=== PATIENT | female | born 1965 | race African-American/Black ===

== ENCOUNTER 2016-10-21 14:12 | Emergency (ER) | payer OTHER ==
[~2016-10-21 14:12] MED LIST: HYDR-963 PO; WARF5TAB7 PO
[2016-10-21] MEDS ORDERED: IV NORMAL SALINE 1000ML BAG 1,000 ML IV SCH (15:54)
[2016-10-21] MEDS ORDERED: FENTANYL PF 100 MCG/2 ML VIAL. IV PRN (16:00)
[2016-10-21] MEDS ORDERED: FAMOTIDINE 20 MG/2 ML VIAL IVP ONE (16:00)
[2016-10-21] MEDS ORDERED: ONDANSETRON PF 4 MG/2 ML VIAL. IV ONE (16:00)
[2016-10-21] MEDS ORDERED: LIDO:MAALOX:DONNATAL 1:1:1 15 ML SINGLE DOSE SWSW ONE (16:00)
--- NOTE | 2016-10-21 16:00 | PHYS DOC ---
Past Medical History Past Medical History: Other Additional Past Medical Histor: chronic pain, blood clot Past Surgical History: Appendectomy, Cholecystectomy, Other Additional Past Surgical Histo: several neck surgery Alcohol Use: None Drug Use: None Adult General Chief Complaint Chief Complaint: ABDOMINAL PAIN HPI HPI Patient is a 51 year old female who presents with complaint of right-sided abdominal pain. Patient states that she has been having pain for the past 2 weeks. Patient states that the pain is sharp, rated 8 out of 10, and states that along the right side of her abdomen and travels towards her epigastric area. Patient denies any associated vomiting, fever, or diarrhea. Patient states that she has had history of cholecystectomy 4 years ago. Patient states that her symptoms feel similar. Patient states that she is unable to lay on the right side due to pain along her abdomen. Patient has not taken any medications to help with her symptoms at this time. Review of Systems Review of Systems Constitutional: Denies fever or chills [] Eyes: Denies change in visual acuity, redness, or eye pain [] HENT: Denies nasal congestion or sore throat [] Respiratory: Denies cough or shortness of breath [] Cardiovascular: Denies chest pain or edema [] GI: Abdominal pain, denies nausea, vomiting, or diarrhea [] : Denies dysuria or hematuria [] Musculoskeletal: Denies back pain or joint pain [] Integument: Denies rash or skin lesions [] Neurologic: Denies headache, focal weakness or sensory changes [] Current Medications Current Medications Current Medications Medications (Trade) Dose Ordered Sig/Gloria Start Time Stop Time Status Last Admin Dose Admin Famotidine (Pepcid) 20 mg 1X ONCE 10/21/16 16:00 10/21/16 16:01 DC 10/21/16 16:19 20 MG Fentanyl Citrate 50 mcg 50 mcg PRN Q15MIN PRN 10/21/16 16:00 10/21/16 20:27 DC 10/21/16 16:19 50 MCG Iohexol (Omnipaque 300 Mg/ml) 75 ml 1X ONCE 10/21/16 18:00 10/21/16 18:01 DC 10/21/16 18:10 75 ML Multi-Ingredient Mouthwash/Gargle (Gi Cocktail Single Dose) 15 ml 1X ONCE 10/21/16 16:00 10/21/16 16:01 DC 10/21/16 16:19 15 ML Ondansetron HCl (Zofran) 4 mg 1X ONCE 10/21/16 16:00 10/21/16 16:01 DC 10/21/16 16:18 4 MG Sodium Chloride (Iv Sodium Chloride 0.9% 1000ml Bag) 1,000 ml @ 1,000 mls/hr Q1H 10/21/16 15:54 10/21/16 16:53 DC 10/21/16 15:54 1,000 MLS/HR Allergies Allergies Allergies Coded Allergies Type Severity Reaction Last Updated Verified No Known Drug Allergies 09/13/14 No Physical Exam Physical Exam Constitutional: Alert, afebrile, appears in mild to moderate discomfort. [] HENT: Normocephalic, atraumatic, bilateral external ears normal, oropharynx moist, no oral exudates, nose normal. [] Eyes: PERRLA, EOMI, conjunctiva normal, no discharge. [] Neck: Normal range of motion, no tenderness, supple, no stridor. [] Cardiovascular:Heart rate regular rhythm, no murmur [] Lungs & Thorax: Bilateral breath sounds clear to auscultation [] Abdomen: Bowel sounds normal, soft, epigastric and right upper quadrant tenderness to palpation, mild guarding, no rebound tenderness, no masses, no pulsatile masses. [] Skin: Warm, dry, no erythema, no rash. [] Back: No tenderness, no CVA tenderness. [] Extremities: No tenderness, no cyanosis, no clubbing, ROM intact, no edema. [] Neurologic: Alert and oriented X 3, normal motor function, normal sensory function, no focal deficits noted. [] Current Patient Data Vital Signs Vital Signs Date Time Temp Pulse Resp B/P Pulse Ox O2 Delivery O2 Flow Rate FiO2 10/21/16 20:15 80 159/75 95 Room Air 10/21/16 16:19 12 10/21/16 15:03 97.9 97.9 Lab Values Laboratory Tests Test 10/21/16 15:17 10/21/16 16:05 White Blood Count 6.3x10^3/uL (4.0-11.0) Red Blood Count 4.68x10^6/uL (3.50-5.40) Hemoglobin 10.8g/dL (12.0-15.5) L Hematocrit 34.7% (36.0-47.0) L Mean Corpuscular Volume 74fL (79-100) L Mean Corpuscular Hemoglobin 23pg (25-35) L Mean Corpuscular Hemoglobin Concent 31g/dL (31-37) Red Cell Distribution Width 15.0% (11.5-14.5) H Platelet Count 200x10^3/uL (140-400) Neutrophils (%) (Auto) 46% (31-73) Lymphocytes (%) (Auto) 39% (24-48) Monocytes (%) (Auto) 8% (0-9) Eosinophils (%) (Auto) 6% (0-3) H Basophils (%) (Auto) 2% (0-3) Neutrophils # (Auto) 2.9x10^3uL (1.8-7.7) Lymphocytes # (Auto) 2.4x10^3/uL (1.0-4.8) Monocytes # (Auto) 0.5x10^3/uL (0.0-1.1) Eosinophils # (Auto) 0.4x10^3/uL (0.0-0.7) Basophils # (Auto) 0.1x10^3/uL (0.0-0.2) Sodium Level 141mmol/L (136-145) Potassium Level 4.2mmol/L (3.5-5.1) Chloride Level 103mmol/L (98-107) Carbon Dioxide Level 30mmol/L (21-32) Anion Gap 8 (6-14) Blood Urea Nitrogen 15mg/dL (7-20) Creatinine 0.7mg/dL (0.6-1.0) Estimated GFR (Cockcroft-Gault) 107.2 BUN/Creatinine Ratio 21 (6-20) H Glucose Level 185mg/dL (70-99) H Calcium Level 9.2mg/dL (8.5-10.1) Total Bilirubin 0.3mg/dL (0.2-1.0) Aspartate Amino Transferase (AST) 24U/L (15-37) Alanine Aminotransferase (ALT) 24U/L (14-59) Alkaline Phosphatase 102U/L (46-116) Creatine Kinase 89U/L (26-192) Creatine Kinase MB (Mass) 0.6ng/mL (0.0-3.6) Creatine Kinase MB Relative Index 0.7% (0-4) Troponin I Quantitative < 0.017ng/mL (0.000-0.055) Total Protein 7.7g/dL (6.4-8.2) Albumin 3.5g/dL (3.4-5.0) Albumin/Globulin Ratio 0.8 (1.0-1.7) L Lipase 136U/L (73-393) Urine Color Yellow Urine Clarity Clear Urine pH 5.5 Urine Specific [place] 1.010 Urine Protein Negativemg/dL (NEG-TRACE) Urine Glucose (UA) Negativemg/dL (NEG) Urine Ketones (Stick) Negativemg/dL (NEG) Urine Blood Negative (NEG) Urine Nitrite Negative (NEG) Urine Bilirubin Negative (NEG) Urine Urobilinogen Dipstick 0.2mg/dL (0.2 mg/dL) Urine Leukocyte Esterase Negative (NEG) Urine RBC 0/HPF (0-2) Urine WBC Occ/HPF (0-4) Urine Squamous Epithelial Cells Occ/LPF Urine Bacteria 0/HPF (0-FEW) Laboratory Tests 10/21/16 15:17 Laboratory Tests 10/21/16 15:17 EKG EKG Interpreted by me: Heart rate 77, sinus rhythm, normal intervals, normal axis, T -wave inversions in V4 and V5, no acute ST elevations or depressions [] Radiology/Procedures Radiology/Procedures [facility] [address] [place] [address] IMAGING REPORT Signed PATIENT: MAGGIE ANGEL ACCOUNT: [id number] : 1965 LOCATION: ER AGE: 51 SEX: F EXAM STATUS: REG ER ORD. PHYSICIAN: MIGUELITO MAYER MD REASON: epigastric and right upper quadrant pain for 2 weeks PROCEDURE: ABD PELV W/ IV CONTRAST ONLY PROCEDURE CT abdomen pelvis with intravenous contrast. HISTORY Severe epigastric and right upper quadrant pain for 2 weeks. TECHNIQUE After administration of intravenous contrast only, 75 mL Omnipaque 300, CT of the abdomen and pelvis was performed. Exposure: One or more of the following individualized dose reduction techniques were utilized for this examination: 1. Automated exposure control. 2. Adjustment of the mA and/or kV according to patient size. 3. Use of iterative reconstruction technique. COMPARISON None. FINDINGS Liver, spleen, pancreas, and bilateral adrenal glands are unremarkable. Gallbladder is absent. Bilateral kidneys enhance symmetrically. Urinary bladder is not well distended with urine. Given level of distention, there may be mild urinary bladder wall thickening. Uterus and adnexa have unremarkable CT appearance. No bowel obstruction or inflammation is identified. Appendix move without evidence of inflammation. No free air or free fluid is seen the abdomen or pelvis. IMPRESSION 1. No evidence of bowel pathology. 2. Question mild wall thickening urinary bladder. Correlate for possibility of cystitis. Electronically signed by: Alex Zavala MD (Oct 21, 2016 18:28:06) DICTATED and SIGNED BY: ALEX ZAVALA MD DATE: 10/21/161827 CC: MIGUELITO MAYER MD; UNKNOWN PCP NAME ~ [] Course & Med Decision Making Course & Med Decision Making Pertinent Labs and Imaging studies reviewed. (See chart for details) Patient was given IV fluids, Zofran, Pepcid, and fentanyl. On reevaluation, patient states her symptoms have improved. Patient's CT scan does not show an acute surgical cause for patient's symptoms. Differential includes abdominal wall strain versus possible peptic ulcer disease versus gastritis. The patient will be started on Flexeril for treatment of possible abdominal wall strain. Patient was also started on [place] for treatment of breakthrough pain. Advised follow-up with primary doctor in 3 days with recommended return to the emergency department for any worsening symptoms. Patient voiced understanding and in agreement with treatment plan. Dragon Disclaimer Dragon Disclaimer This electronic medical record was generated, in whole or in part, using a voice recognition dictation system. Departure Departure Impression: Primary Impression: Abdominal pain Disposition: 01 HOME, SELF-CARE Condition: IMPROVED Referrals: UNKNOWN PCP NAME (PCP) Patient Instructions: Abdominal Pain (Nonspecific) Additional Instructions: Follow-up with primary doctor in 3 days. Return to the emergency department for any worsening symptoms. Scripts Hydrocodone/Apap 5-325 ([place] 5-325 Tablet)1 Each Tablet1 Tab PO Q6HRS PRN PAIN #20 TAB Prov:MIGUELITO MAYER MD 10/21/16 Cyclobenzaprine Hcl 10 Mg Tablet1 Tab PO QHS #15 TAB Prov:MIGUELITO MAYER MD 2/16/17 Problem Qualifiers Primary Impression: Abdominal pain Abdominal location: right upper quadrant Qualified Code: R10.11 - Right upper quadrant pain MIGUELITO MAYER MD Oct 21, 2016 16:00
--- NOTE | 2016-10-21 16:27 | EKG ---
[facility] [address] [place] [address] Test Date: 2016-10-21 Test Time: 16:15:09 Pat Name: MAGGIE ANGEL Department: Room: Gender: F Benefits Consulting Analyst: : 1965 Requested By: MIGUELITO MAYER Order Number: [id number] Reading MD: Measurements Intervals False Pass Rate: 77 P: 29 LA: 148 QRS: 19 QRSD: 84 T: 68 QT: 370 QTc: 420 Interpretive Statements SINUS RHYTHM LEFT ATRIAL ABNORMALITY T ABNORMALITY IN ANTEROLATERAL LEADS ABNORMAL ECG RI6.01 No previous ECG available for comparison
[2016-10-21 16:36] LABS: BASO # 0.1 x10^3/uL (0.0-0.2); BASO % 2 % (0-3); EOS % 6 % (0-3); HEMATOCRIT 34.7 % (36.0-47.0); HEMOGLOBIN 10.8 g/dL (12.0-15.5); LYMPH # 2.4 x10^3/uL (1.0-4.8); LYMPH % 39 % (24-48); MEAN CORPUSCULAR HEMOGLOBIN 23 pg (25-35); MEAN CORPUSCULAR HGB CONC 31 g/dL (31-37); MEAN CORPUSCULAR VOLUME 74 fL (79-100); MONO % 8 % (0-9); NEUT % 46 % (31-73); PLATELET COUNT 200 x10^3/uL (140-400); RED BLOOD COUNT 4.68 x10^6/uL (3.50-5.40); WHITE BLOOD COUNT 6.3 x10^3/uL (4.0-11.0)
[2016-10-21 16:37] LABS: BILIRUBIN,URINE NEGATIVE (NEG); GLUCOSE,URINE NEGATIVE (NEG); NITRITE,URINE NEGATIVE (NEG); PH,URINE 5.5; PROTEIN,URINE NEGATIVE (NEG-TRACE); UROBILINOGEN,URINE 0.2 mg/dL (0.2 mg/dL)
[2016-10-21 16:59] LABS: CALCIUM 9.2 mg/dL (8.5-10.1); CREATININE 0.7 mg/dL (0.6-1.0); GFR 107.2; POTASSIUM 4.2 mmol/L (3.5-5.1)
[2016-10-21 17:04] LABS: ALBUMIN 3.5 g/dL (3.4-5.0); ALBUMIN/GLOBULIN RATIO 0.8 (1.0-1.7); TOTAL BILIRUBIN 0.3 mg/dL (0.2-1.0); TOTAL PROTEIN 7.7 g/dL (6.4-8.2)
[2016-10-21 17:08] LABS: BACTERIA,URINE 0 /HPF (0-FEW); RBC,URINE 0 /HPF (0-2); SQUAMOUS EPITHELIAL CELL,UR OCC /LPF; WBC,URINE OCC /HPF (0-4)
[2016-10-21 17:20] LABS: CKMB INDEX 0.7 % (0-4); CKMB MASS 0.6 ng/mL (0.0-3.6)
[2016-10-21] MEDS ORDERED: IOHEXOL 300 MG/ML 75 ML VIAL IV ONE (18:00)
--- NOTE | 2016-10-21 18:29 | RAD ---
PROCEDURE CT abdomen pelvis with intravenous contrast. HISTORY Severe epigastric and right upper quadrant pain for 2 weeks. TECHNIQUE After administration of intravenous contrast only, 75 mL Omnipaque 300, CT of the abdomen and pelvis was performed. Exposure: One or more of the following individualized dose reduction techniques were utilized for this examination: 1. Automated exposure control. 2. Adjustment of the mA and/or kV according to patient size. 3. Use of iterative reconstruction technique. COMPARISON None. FINDINGS Liver, spleen, pancreas, and bilateral adrenal glands are unremarkable. Gallbladder is absent. Bilateral kidneys enhance symmetrically. Urinary bladder is not well distended with urine. Given level of distention, there may be mild urinary bladder wall thickening. Uterus and adnexa have unremarkable CT appearance. No bowel obstruction or inflammation is identified. Appendix move without evidence of inflammation. No free air or free fluid is seen the abdomen or pelvis. IMPRESSION 1. No evidence of bowel pathology. 2. Question mild wall thickening urinary bladder. Correlate for possibility of cystitis. Electronically signed by: Alex Zavala MD (Oct 21, 2016 18:28:06)
[2016-10-21] MEDS ORDERED: HYDR-971 PO (19:36)
[2016-10-21] MEDS ORDERED: CYCL10TA2 PO (19:36)
[2016-10-21 20:15] VITALS: BP 159/75
== END 2016-10-21 20:15 | disposition home or self-care (01) ==
LOC: ER 14:12
DX: R10.11 Right upper quadrant pain (principal); R10.13 Epigastric pain; G89.29 Other chronic pain; Z90.49 Acquired absence of other specified parts of digestive tract
CPT/HCPCS: 36415; 74177; 80053; 81001; 82553; 83690; 84484; 85027; 93005; 96361; 96374; 96375; 99285; J2405; J3010; J7030; Q9967; S0028

== ENCOUNTER 2018-04-28 17:44 | Emergency (ER) | payer OTHER ==
[~2018-04-28] VITALS: Ht 172.7 cm; Wt 70.3 kg
[~2018-04-28 17:44] MED LIST changes: +CYCL10TA2 PO; +HYDR-971 PO; +WARF-31 PO; -WARF5TAB7 PO
[2018-04-28 18:18] VITALS: BP 155/74
[2018-04-28] MEDS ORDERED: IBUPROFEN 600 MG TABLET. PO ONE (18:45)
--- NOTE | 2018-04-28 19:10 | PHYS DOC ---
Past Medical History Past Medical History: Diabetes-Type II, Hypertension, Other Additional Past Medical Histor: chronic pain, blood clot Past Surgical History: Appendectomy, Cholecystectomy, Other Additional Past Surgical Histo: several neck surgery Alcohol Use: None Drug Use: None Adult General Chief Complaint Chief Complaint: UPPER EXTREMITY PAIN HPI HPI 52 y/o female presents to ER with her son Gaetano who is translating for her. He reports pt has had increased lt arm pain in forearm/upper arm along with swelling for past couple of days denying any injury/falls. He reports pt has chronic pain from previous neck surgery but reports this pain to be more intense and different than in the past. Pt took hydrocodone around 12 p.m. with minimal relief in pain. In pt's records she has hx of blood clot where she had been on Coumadin but pt is unsure where the clot was and her son reports she has been off her Coumadin for couple of yrs. Pt is not smoker and has not recently traveled. She is not on any hormonal therapy. Review of Systems Review of Systems Constitutional: Denies fever or chills [] Eyes: Denies change in visual acuity, redness, or eye pain [] HENT: Denies nasal congestion or sore throat [] Respiratory: Denies cough or shortness of breath [] Cardiovascular: No additional information not addressed in HPI [] GI: Denies abdominal pain, nausea, vomiting, bloody stools or diarrhea [] : Denies dysuria or hematuria [] Musculoskeletal: Denies back pain or joint pain [] Integument: Denies rash or skin lesions [] Neurologic: Denies headache, focal weakness or sensory changes [] Endocrine: Denies polyuria or polydipsia [] All other systems were reviewed and found to be within normal limits, except as documented in this note. Current Medications Current Medications Current Medications Medications (Trade) Dose Ordered Sig/Gloria Start Time Stop Time Status Last Admin Dose Admin Ibuprofen (Motrin) 600 mg 1X ONCE 04/28/18 18:45 04/28/18 18:46 DC 04/28/18 20:43 600 MG Allergies Allergies Allergies Coded Allergies Type Severity Reaction Last Updated Verified No Known Drug Allergies 09/13/14 No Physical Exam Physical Exam Constitutional: Well developed, well nourished, no acute distress, non-toxic appearance. [] HENT: Normocephalic, atraumatic, bilateral external ears normal, oropharynx moist, no oral exudates, nose normal. [] Eyes: PERRLA, EOMI, conjunctiva normal, no discharge. [] Neck: Normal range of motion, no tenderness, supple, no stridor. [] Cardiovascular:Heart rate regular rhythm, no murmur [] Lungs & Thorax: Bilateral breath sounds clear to auscultation [] Abdomen: Bowel sounds normal, soft, no tenderness, no masses, no pulsatile masses. [] Skin: Warm, dry, no erythema, no rash. [] Back: No tenderness, no CVA tenderness. [] Extremities: No tenderness, no cyanosis, no clubbing, ROM intact, no edema. [] Neurologic: Alert and oriented X 3, normal motor function, normal sensory function, no focal deficits noted. [] Psychologic: Affect normal, judgement normal, mood normal. [] Current Patient Data Vital Signs Vital Signs Date Time Temp Pulse Resp B/P (MAP) Pulse Ox O2 Delivery O2 Flow Rate FiO2 04/28/18 18:18 98.0 67 18 155/74 (101) 96 Room Air 98.0 Lab Values Laboratory Tests Test 04/28/18 18:40 Glucose (Fingerstick) 99 mg/dL (70-99) EKG EKG [] Radiology/Procedures Radiology/Procedures [] Course & Med Decision Making Course & Med Decision Making Pertinent Imaging studies reviewed. (See chart for details) 2119: Discussed imaging results with pt and her son- again with son translating. No acute findings reported for DVT on US or fxs on xrays- discussed arthritis. Pt reports with ibuprofen her pain has improved, Pt remains neuro/vascular intact in lt upper extremity. Will place her in sling for extremity support and advised on need for f/u with orthopedic doctor for further care/eval. Gerhard Disclaimer Dragon Disclaimer This electronic medical record was generated, in whole or in part, using a voice recognition dictation system. Departure Departure Impression: Primary Impression: Arm pain, left Disposition: 01 HOME, SELF-CARE Condition: STABLE Referrals: UNKNOWN PCP NAME (PCP) MALIK NICOLAS MD orthopedic doctor to follow-up with Patient Instructions: Arm Sling Use, [id number], Musculoskeletal Pain Additional Instructions: Wear sling when walking for support of your left arm. Ibuprofen as needed for pain control as directed on container. Take your prescribed hydrocodone as previously prescribed. Follow-up with orthopedic doctor for further care and evaluation. MAREK EUGENE APRN Apr 28, 2018 19:10
--- NOTE | 2018-04-28 19:20 | RAD ---
Indication: Left upper extremity pain and swelling for one month. No known injury. TECHNIQUE: AP and lateral views of the left forearm. COMPARISON: None FINDINGS: No acute fracture or dislocation. Abdomen within normal limits. Mild radiocarpal joint arthritis. Soft tissue within normal limits. IMPRESSION: No acute findings. Electronically signed by: John Reddy DO (04/28/2018 7:17 PM) [facility]
--- NOTE | 2018-04-28 20:11 | RAD ---
Indication: Left approximately pain and swelling for one month TECHNIQUE: 2 views of the left humerus COMPARISON: None FINDINGS: No acute fracture or dislocation. Mild glenohumeral joint arthritis. No soft tissue abnormality. No periosteal reaction or cortical erosion. IMPRESSION: No acute findings. Electronically signed by: John Reddy DO (04/28/2018 8:08 PM) [facility]
--- NOTE | 2018-04-28 20:52 | RAD ---
Ultrasound venous Doppler INDICATION:Left upper arm/forearm pain and swelling TECHNIQUE: Grayscale, color Doppler and spectral waveform ultrasound images of the left upper extremities deep veins obtained. COMPARISON: None FINDINGS: The internal jugular vein, subclavian vein, axillary vein, brachial vein, cephalic vein, basilic vein, radial vein and ulnar vein are compressible and demonstrates evidence of blood flow. IMPRESSION: No sonographic evidence of acute DVT of the left upper extremity deep veins. Electronically signed by: John Reddy DO (04/28/2018 8:49 PM) [facility]
== END 2018-04-28 21:40 | disposition home or self-care (01) ==
LOC: ER 17:44
DX: M79.632 Pain in left forearm (principal); G89.29 Other chronic pain; E11.9 Type 2 diabetes mellitus without complications; I10 Essential (primary) hypertension; Z79.01 Long term (current) use of anticoagulants
CPT/HCPCS: 73060; 73090; 82962; 93971; 99285

== ENCOUNTER 2019-07-03 17:11 | Emergency (ER) | payer OTHER ==
[~2019-07-03] VITALS: Ht 165.1 cm; Wt 88.6 kg
[~2019-07-03 17:11] MED LIST changes: +HYDR-3135 PO; +HYDR-3164 PO; -HYDR-963 PO; -HYDR-971 PO
[2019-07-03 17:28] VITALS: BP 168/81
--- NOTE | 2019-07-03 18:04 | PHYS DOC ---
Past Medical History Past Medical History: Diabetes-Type II, High Cholesterol, Hypertension, Other Additional Past Medical Histor: chronic pain, blood clot Past Surgical History: Appendectomy, Cholecystectomy, Other Additional Past Surgical Histo: several neck surgery Alcohol Use: None Drug Use: None Adult General Chief Complaint Chief Complaint: HIP PAIN HPI HPI Patient is a 53 year old female that presents with bilateral leg pain and neck pain has been ongoing for 3 days. The patient denies falling, and states that she's had this pain in the past and sees a pain management doctor for this pain. The patient states that she has a history of chronic pain. Narcotics by her pain management doctor and states that she ran out today. Rates her pain as 10 out of 10 in severity and sharp. Review of Systems Review of Systems Constitutional: Denies fever or chills [] Eyes: Denies change in visual acuity, redness, or eye pain [] HENT: Denies nasal congestion or sore throat [] Respiratory: Denies cough or shortness of breath [] Cardiovascular: No additional information not addressed in HPI [] GI: Denies abdominal pain, nausea, vomiting, bloody stools or diarrhea [] : Denies dysuria or hematuria [] Musculoskeletal: Reports back pain, and neck pain. Integument: Denies rash or skin lesions [] Neurologic: Denies headache, focal weakness or sensory changes [] Endocrine: Denies polyuria or polydipsia [] Complete systems were reviewed and found to be within normal limits, except as documented in this note. Allergies Allergies Allergies Coded Allergies Type Severity Reaction Last Updated Verified No Known Drug Allergies 09/13/14 No Physical Exam Physical Exam Constitutional: Well developed, well nourished, no acute distress, non-toxic appearance. [] HENT: Normocephalic, atraumatic, bilateral external ears normal, oropharynx moist, no oral exudates, nose normal. [] Eyes: PERRLA, EOMI, conjunctiva normal, no discharge. [] Neck: Normal range of motion, tenderness to neck to right side., supple, no stridor. [] Cardiovascular:Heart rate regular rhythm, no murmur [] Lungs & Thorax: Bilateral breath sounds clear to auscultation [] Abdomen: Bowel sounds normal, soft, no tenderness, no masses, no pulsatile masses. [] Skin: Warm, dry, no erythema, no rash. [] Back: Tenderness to back bilaterally. Extremities: No tenderness, no cyanosis, no clubbing, ROM intact, no edema. [] Neurologic: Alert and oriented X 3, normal motor function, normal sensory function, no focal deficits noted. [] Psychologic: Affect normal, judgement normal, mood normal. [] Current Patient Data Vital Signs Vital Signs Date Time Temp Pulse Resp B/P (MAP) Pulse Ox O2 Delivery O2 Flow Rate FiO2 07/03/19 17:28 97.9 80 24 168/81 (110) 94 Room Air 97.9 EKG EKG [] Radiology/Procedures Radiology/Procedures [] Course & Med Decision Making Course & Med Decision Making Pertinent Labs and Imaging studies reviewed. (See chart for details) [] Dragon Disclaimer Dragon Disclaimer This electronic medical record was generated, in whole or in part, using a voice recognition dictation system. Departure Departure Impression: Primary Impression: Chronic right shoulder pain Additional Impression: Sciatica Disposition: HOME, SELF-CARE Condition: STABLE Referrals: UNKNOWN PCP NAME (PCP) Patient Instructions: Chronic Back Pain Additional Instructions: Thank you for visiting [facility]. We appreciate you trusting us with your care. If any additional problems come up don't hesitate to return to visit us. Please follow up with your primary care provider so they can plan additional care if needed and know about the problem that you had. If symptoms worsen come back to the Emergency Department. Any concerning symptoms that start such as chest pain, shortness of air, weakness or numbness on one side of the body, running high fevers or any other concerning symptoms return to the ER. Please contact her pain management doctor regarding this chronic pain. Problem Qualifiers Additional Impression: Sciatica Laterality: bilateral Qualified Codes: M54.31 - Sciatica, right side; M54.32 - Sciatica, left side ALEXYS VELASQUEZ APRN Jul 03, 2019 18:04
== END 2019-07-03 18:28 | disposition home or self-care (01) ==
LOC: ER 17:11
DX: G89.29 Other chronic pain (principal); M25.511 Pain in right shoulder; M25.512 Pain in left shoulder; M54.31 Sciatica, right side; M54.32 Sciatica, left side; M54.89 Other dorsalgia; E11.9 Type 2 diabetes mellitus without complications; E78.00 Pure hypercholesterolemia, unspecified; I10 Essential (primary) hypertension; Z98.890 Other specified postprocedural states; Z90.89 Acquired absence of other organs; Z90.49 Acquired absence of other specified parts of digestive tract
CPT/HCPCS: 99284

== ENCOUNTER 2021-10-04 14:32 | Emergency (ER) | payer OTHER ==
[~2021-10-04] VITALS: Ht 172.7 cm; Wt 85.3 kg
[~2021-10-04 14:32] MED LIST changes: +CYCL10TA19 PO; -CYCL10TA2 PO
--- NOTE | 2021-10-04 16:49 | PHYS DOC ---
Past Medical History Past Medical History: Diabetes-Type II, High Cholesterol, Hypertension, Other Additional Past Medical Histor: chronic pain, blood clot Past Surgical History: Appendectomy, Cholecystectomy, Other Additional Past Surgical Histo: several neck surgery, R KNRR L WRIST R, KIDNEY STONE Smoking Status: Never Smoker Alcohol Use: None Drug Use: None General Adult EDM: Chief Complaint: BACK PAIN OR INJURY HPI: HPI: Patient is a 56 year old female who presents with right-sided back pain that began 2 weeks ago. Patient's family members at bedside and aids in providing history. Patient was walking outside the home 2 weeks ago, when she slipped on some ice. She fell onto her right hip/buttock. Patient has been able to ambulate since injury, however has persistent pain. She denies radiation of her pain, urinary or bowel incontinence, saddle anesthesia. Review of Systems: Review of Systems: Constitutional: Denies fever, chills or generalized weakness Eyes: Denies change in visual acuity, visual field deficits or discharge HENT: Denies ear pain, nasal congestion or sore throat Respiratory: Denies cough or shortness of breath Cardiovascular: Denies chest pain, palpitations or edema GI: Denies abdominal pain, nausea, vomiting, bloody stools or diarrhea : Denies dysuria or hematuria Musculoskeletal: See HPI Integument: Denies rash or other skin lesion Neurologic: Denies headache, focal weakness or sensory changes Heart Score: C/O Chest Pain: No Current Medications: Current Medications Medications (Trade) Dose Ordered Sig/Gloria Start Time Stop Time Status Last Admin Dose Admin Ketorolac Tromethamine (Toradol 30mg Vial) 30 mg 1X ONCE 10/04/21 16:30 10/04/21 16:31 DC Orphenadrine Citrate (Norflex) 60 mg 1X ONCE 10/04/21 16:30 10/04/21 16:31 DC Allergies: Allergies: Allergies Coded Allergies Type Severity Reaction Last Updated Verified No Known Drug Allergies 09/13/14 No Physical Exam: PE: Constitutional: Well developed, well nourished, no acute distress, non-toxic appearance. Eyes: EOMI, conjunctiva normal, no discharge. Neck: Normal range of motion, no stepoff, no tenderness, no stridor. Skin: Warm, dry, no erythema, no rash. Back: No stepoff, no midline tenderness, right sided paraspinal spasm and tenderness in lumbar region, no CVA tenderness. Extremities: No tenderness, no cyanosis, no clubbing, ROM intact including great toe dorsiflexion, no edema, distal pulses 2+ and symmetrical. Neurologic: Alert and oriented x4, no focal deficits noted. Current Patient Data: Vital Signs: Vital Signs Date Time Temp Pulse Resp B/P (MAP) Pulse Ox O2 Delivery O2 Flow Rate FiO2 10/04/21 15:05 97.9 85 18 168/81 (110) 99 Room Air 97.9 Radiology/Procedures: Radiology/Procedures: EXAM: Pelvis and right hip, 2 views; lumbar spine, 2 views. HISTORY: Fall. Pain. COMPARISON: None. FINDINGS: Pelvis and right hip: A frontal view the pelvis and frontal and frog-leg views of the right hip are obtained. There is no acute fracture, dislocation or subluxation. The femoral heads are normal in configuration. There are tiny radiodense foreign bodies overlying the buttock hip soft tissues. Lumbar spine: 2 views of the lumbar spine are obtained. There is mild lumbar dextrocurvature. There is multilevel endplate remodeling. There is disc space na rrowing and facet arthropathy predominantly the lower lumbar levels. There is no fracture. There are cholecystectomy clips and vascular calcifications. IMPRESSION: 1. No acute osseous finding. 2. Degenerative change involving the lumbar spine, described above. Electronically signed by: Meaghan Orozco MD (10/04/2021 4:52 PM) [facility] Course & Med Decision Making: Course & Med Decision Making Pertinent Labs and Imaging studies reviewed. (See chart for details) Patient is a 56 year old female who presents with low back pain after a fall from standing 2 weeks ago. Workup today will include plain films of right hip/pelvis/lumbar spine. Toradol and norflex provided for pain and muscle spasticity. Patient pain improved on reevaluation. Patient and her family member at bedside were informed of findings. Treatment with NSAIDs, muscle relaxer and nonphar macologic supportive measures discussed. Patient and her family member were given return precautions, follow up instruction. They understand and are agreeable to discharge plan. Dragon Disclaimer: Dragon Disclaimer: This electronic medical record was generated, in whole or in part, using a voice recognition dictation system. Departure Departure Impression: Primary Impression: Contusion of lower back and pelvis, initial encounter Disposition: HOME / SELF CARE / HOMELESS Condition: IMPROVED Referrals: NO PCP (PCP) TAHIRA VILLAR MD Patient Instructions: Contusion, [id number] Additional Instructions: EMERGENCY DEPARTMENT GENERAL DISCHARGE INSTRUCTIONS Thank you for coming to [facility] Emergency Department (ED) today and trusting us with you care. We trust that you had a positive experience in our Emergency Department. If you wish to speak to the department management, you may call the director at . YOUR FOLLOW UP INSTRUCTIONS ARE FOLLOWS: 1. Follow up with your primary care doctor. If you do not have a primary doctor, please ask for a resource list of physicians or clinics that may be able to assist you with follow up care. 2. The emergency provider has interpreted your imaging studies, if any were ordered. The radiology immigration specialist also reviewed them. If there is a change in the findings, you will be notified in 48 hours when at all possible. 3. If a lab test or culture has been done, your results will be reviewed and you will be notified if you need a change in treatment. 4. Follow instructions verbalized to you and refer to the printouts if needed. - Orphenadrine citrate (Norflex) every 12 hours - Over the counter NSAID (Aleve or Advil) per box instructions - Soft tissue massage ADDITIONAL INSTRUCTIONS AND INFORMATION: 1. Your care today has been supervised by a physician who is specially trained in emergency care. Many problems require more than one evaluation for a complete diagnosis and treatment. We recommend that you schedule your follow up appointment as recommended to ensure complete treatment of you illness or injury. If you are unable to obtain follow up care and continue to have a problem, or if your condition worsens, we recommend that you return to the ED. 2. We are not able to safely determine your condition over the phone nor are we able to give sound medical advice over the phone. For these safety reasons, if you call for medical advice we will ask you to come to the ED for further evaluation. 3. If you have any questions regarding these discharge instructions please call the ED at . SAFETY INFORMATION: In the interest of safety, wellness, and injury prevention; we encourage you to wear your seat belt, if you smoke; quite smoking, and we encourage family to use a protective helmet for bicycling and other sporting events that present an increased risk for head injury. IF YOUR SYMPTOMS WORSEN OR NEW SYMPTOMS DEVELOP, OR YOU HAVE CONCERNS ABOUT YOUR CONDITION; OR IF YOUR CONDITION WORSENS WHILE YOU ARE WAITING FOR YOUR FOLLOW UP APPOINTMENT; EITHER CONTACT YOUR PRIMARY CARE DOCTOR, THE PHYSICIAN WHOSE NAME AND NUMBER YOU WERE GIVEN, OR RETURN TO THE ED IMMEDIATELY. Scripts Orphenadrine Citrate (ORPHENADRINE CITRATE) 100 Mg Tablet.er 1 TAB PO Q12HR, #9 TAB 1 Refill Prov: LEANN NICOLE 10/04/21 LEANN NICOLE Oct 04, 2021 16:49
--- NOTE | 2021-10-04 16:55 | RAD ---
EXAM: Pelvis and right hip, 2 views; lumbar spine, 2 views. HISTORY: Fall. Pain. COMPARISON: None. FINDINGS: Pelvis and right hip: A frontal view the pelvis and frontal and frog-leg views of the right hip are o btained. There is no acute fracture, dislocation or subluxation. The femoral heads are normal in conf iguration. There are tiny radiodense foreign bodies overlying the buttock hip soft tissues. Lumbar spine: 2 views of the lumbar spine are obtained. There is mild lumbar dextrocurvature. There i s multilevel endplate remodeling. There is disc space narrowing and facet arthropathy predominantly t he lower lumbar levels. There is no fracture. There are cholecystectomy clips and vascular calcificat ions. IMPRESSION: 1. No acute osseous finding. 2. Degenerative change involving the lumbar spine, described above. Electronically signed by: Meaghan Orozco MD (10/04/2021 4:52 PM) [facility]
[2021-10-04] MEDS: ORPHENADRINE CITRATE 60 MG/2 ML VIAL. IM ONE (17:05)
[2021-10-04] MEDS: KETOROLAC 30 MG/ML VIAL. IM ONE (17:11)
[2021-10-04 17:30] VITALS: BP 160/79
[2021-10-04] MEDS ORDERED: ORPH100T PO (17:49)
== END 2021-10-04 17:56 | disposition home or self-care (01) ==
LOC: ER 14:32
DX: S30.0XXA Contusion of lower back and pelvis, initial encounter (principal); E11.9 Type 2 diabetes mellitus without complications; I10 Essential (primary) hypertension; E78.00 Pure hypercholesterolemia, unspecified; G89.29 Other chronic pain; Z90.89 Acquired absence of other organs; Z90.49 Acquired absence of other specified parts of digestive tract; W00.0XXA Fall on same level due to ice and snow, initial encounter; Y93.89 Activity, other specified; Y92.89 Other specified places as the place of occurrence of the external cause; Y99.8 Other external cause status
CPT/HCPCS: 72100; 73502; 96372; 99284; J1885; J2360